=== PATIENT | male | born 1990 | race Caucasian/White ===

== ENCOUNTER 2020-08-08 10:42 | Emergency (ER) | payer SELFPAY ==
[~2020-08-08] VITALS: Ht 182.9 cm; Wt 100.0 kg
[~2020-08-08 10:42] MED LIST: AMOXICILLIN500 MG PO; MUCINEX600 MG PO; NITE TIME MULTI-SYM2; TYLENOL COLD PO; [UNRECOGNIZED DRUG - REMARK] PO
[2020-08-08] MEDS ORDERED: TORADOL PO (12:49)
[2020-08-08] MEDS ORDERED: FLEXERIL5 M1 PO (12:49)
[2020-08-08 13:13] VITALS: BP 133/84
== END 2020-08-08 13:13 | disposition home or self-care (01) | DRG 563 ==
LOC: ED 10:42
DX: S39.012A Strain of muscle, fascia and tendon of lower back, initial encounter (principal); X50.0XXA Overexertion from strenuous movement or load, initial encounter